=== PATIENT | female | born 1990 | race African-American/Black ===

== ENCOUNTER 2020-08-19 16:24 | Outpatient (CLI) | payer MEDICAID ==
--- NOTE | 2020-08-19 17:29 | Non Stress Test Report ---
Non Stress Test Datetime Report Generated by CPN: 08/19/2020 17:29 DEMOGRAPHIC EGA NST: 38.3 INDICATION Indication for Study (NST) Other: LC- ctxs MONITORING Monitor Explained: Monitor Explained; Test Explained; Patient Verbalized Understanding Time on Monitor: 08/19/2020 16:53 Time off Monitor: 08/19/2020 17:27 NST Duration: 34 NST INTERVENTIONS NST Interventions: PO Hydration Physician Notified NST: Dr Tapia BABY A: [id number] BABY A Movement : Present Contraction Frequency : 5-6 FHR Baseline : 130 Accelerations : 15X15 Decelerations : None Variability : Moderate 6-25bpm NST Review: Meets Criteria for Reactive NST NST Review and Verified By : Kaitlynn Baitejinder RN NST Results: Reactive NST COMMENTS NST Comments: MD on unit reviewing FHT strip NST REPORT Report Trigger: Send Report
[2020-08-19 17:32] LABS: APPEARANCE,URINE CLEAR; BILIRUBIN,URINE NEGATIVE (NEGATIVE); COLOR,URINE YELLOW; GLUCOSE, URINE NEGATIVE (NEGATIVE); KETONES,URINE NEGATIVE (NEGATIVE); LEUKOCYTE ESTERASE,URINE SMALL (NEGATIVE); NITRITE,URINE NEGATIVE (NEGATIVE); PROTEIN,URINE NEGATIVE (NEGATIVE); URINE SPECIFIC GRAVITY 1.011; UROBILINOGEN,URINE NEGATIVE mg/dL (<2.0)
[2020-08-19 17:48] LABS: URINE AMPHETAMINES SCREEN NEGATIVE; URINE BARBITURATES SCREEN NEGATIVE; URINE BENZODIAZEPINES SCREEN NEGATIVE; URINE COCAINE SCREEN NEGATIVE; URINE MARIJUANA (THC) SCREEN NEGATIVE; URINE METHADONE SCREEN NEGATIVE; URINE PHENCYCLIDINE SCREEN NEGATIVE
== END 2020-08-19 20:01 | disposition home or self-care (01) ==
LOC: LC 16:24
PROVIDERS: ATTEND Obstetrics & Gynecology Gynecology
DX: O47.1 False labor at or after 37 completed weeks of gestation (principal); Z3A.38 38 weeks gestation of pregnancy
CPT/HCPCS: 80307; 81005

== ENCOUNTER 2020-08-23 10:43 | Inpatient (IN) | payer MEDICAID ==
[2020-08-23] MEDS ORDERED: OXYTOCIN/0.9 % SODIUM CHLORIDE 30 UNIT/500 ML RTUINJ ONE (10:56)
[2020-08-23] MEDS ORDERED: LIDOCAINE 1% INJ-PF (10 MG/ML) 30 ML SDV ONE (10:56)
[2020-08-23] MEDS ORDERED: OXYTOCIN 10 UNIT/ML VIAL ONE (10:56)
[2020-08-23] MEDS ORDERED: MISOPROSTOL 0.2 MG TABLET ONE (10:56)
[2020-08-23] MEDS ORDERED: OXYTOCIN/0.9 % SODIUM CHLORIDE 30 UNIT/500 ML RTUINJ IV PRN ×2 (10:59→18:26)
[2020-08-23] MEDS ORDERED: RINGERS SOLUTION,LACTATED 1,000 ML IV ONE (10:59)
[2020-08-23] MEDS ORDERED: RINGERS SOLUTION,LACTATED 500 ML IV ONE (10:59)
--- NOTE | 2020-08-23 11:52 | Admission Physical ---
Datetime Report Generated by CPN: 08/23/2020 11:51 CURRENT ADMISSION Chief Complaint: Scheduled Induction of Labor Indication for Induction: Other Indication for Induction- Other: hx rapid labor Admit Impression : Term, Intrauterine Admit Plan: Admit to Unit; Initiate Labor Induction Protocol Admit Plan- Other: GBS neg ALLERGIES Medication Allergies: Yes Medication Allergies: No Known Drug Allergies (08/23/2020) Latex: No Latex Allergies OBSTETRICAL HISTORY EDC: 08/30/2020 00:00 : 3 Para: 2 Term: 2 : 0 SAB: 0 IAB: 0 Ectopic: 0 Livin Cesareans: 0 VBACs: 0 Multiple Births: 0 Gestational Diabetes: No Rh Sensitization: No Incompetent Cervix: No MILIND: No Infertility: No Uterine Anomaly: No IUGR: No Hx Previous C/S: No Macrosomia: No Hx Loss/Stillborn: No PIH: No Hx : No Placenta Previa/Abruption: No PTL/PROM: No Current Procedures: Ultrasound; NST Obstetrical History Comments: G1- 2009 41 weeks 7#12 oz G2- 2014 39.5 weeks 7#6 oz G3- current SEE RECORDS Cigarettes: Never Smoker. [id number] MEDICAL HISTORY Pulmonary Disease (Asthma, TB): Yes Hosp/Surgery: Yes Other Medical Diseases: Yes Medical History Comments: asthma, childbirth x2, PICA as a teen, PHYSICAL EXAM General: Normal HEENT: Deferred Neurologic: Normal Thyroid: Deferred Heart: Normal Lungs: Normal Breast: Deferred Back: Deferred Abdomen: Normal Genitourinary Exam: Normal Extremities: Normal DTRs: Deferred Pelvic Type: Not Done Physical Exam Comments: proven pelvis 7lb 12oz was 4/80/-2 at [facility] on 08/21/20 Vital Signs: Reviewed MEMBRANES Membranes: Intact FETUS A EGA: 39.0 Monitoring: External US FHR- Baseline: 135 Variability: Moderate 6-25bpm Accelerations: 15X15 Decelerations: None FHR Category: Category I Presentation: Vertex Admit Comment: plan AROM, pitocin aniticipate PLANS FOR LABOR AND DELIVERY Circumcision: Yes INFORMED CONSENT Assignment: Beverly Plascencia MD Signature: with User ID: Solis : with User ID: Solis
[2020-08-23 11:56] LABS: ABSOLUTE EOSINOPHILS # (AUTO) 0.1 10^3/uL (0.0-0.6); ABSOLUTE LYMPHOCYTES (AUTO) 1.2 10^3/uL (0.5-4.7); ABSOLUTE MONOCYTES (AUTO) 0.7 10^3/uL (0.1-1.4); ABSOLUTE NEUT (AUTO) 6.8 10^3/uL (1.7-8.2); BASOPHILS % (AUTO) 0.5 % (0-2); EOSINOPHILS % (AUTO) 1.4 % (0-6); HEMATOCRIT 33.7 % (36.0-47.0); HEMOGLOBIN 11.6 g/dL (12.0-15.5); LYMPHOCYTES % (AUTO) 13.4 % (13-45); MEAN CORPUSCULAR HEMOGLOBIN 25.7 pg (27.0-33.4); MEAN CORPUSCULAR HGB CONC 34.5 g/dL (32.0-36.0); MEAN CORPUSCULAR VOLUME 75 fl (80-97); MONOCYTES % (AUTO) 8.4 % (3-13); PLATELET COUNT 153 10^3/uL (150-450); RED BLOOD COUNT 4.52 10^6/uL (3.72-5.28); RED CELL DISTRIBUTION WIDTH 15.9 % (11.5-14.0); SEGMENTED NEUTROPHILS % (AUTO) 76.3 % (42-78); TOTAL CELLS COUNTED % (AUTO) 100 %; WHITE BLOOD COUNT 8.9 10^3/uL (4.0-10.5)
[2020-08-23 11:58] LABS: APPEARANCE,URINE SLIGHTLY HAZY; BILIRUBIN,URINE NEGATIVE (NEGATIVE); COLOR,URINE YELLOW; GLUCOSE, URINE NEGATIVE (NEGATIVE); KETONES,URINE NEGATIVE (NEGATIVE); LEUKOCYTE ESTERASE,URINE NEGATIVE (NEGATIVE); NITRITE,URINE NEGATIVE (NEGATIVE); PROTEIN,URINE NEGATIVE (NEGATIVE); URINE SPECIFIC GRAVITY 1.022; UROBILINOGEN,URINE NEGATIVE mg/dL (<2.0)
[2020-08-23] MEDS ORDERED: RINGERS SOLUTION,LACTATED 1,000 ML IV PRN (12:11)
[2020-08-23 12:20] LABS: URINE AMPHETAMINES SCREEN NEGATIVE; URINE BARBITURATES SCREEN NEGATIVE; URINE BENZODIAZEPINES SCREEN NEGATIVE; URINE COCAINE SCREEN NEGATIVE; URINE MARIJUANA (THC) SCREEN NEGATIVE; URINE METHADONE SCREEN NEGATIVE; URINE PHENCYCLIDINE SCREEN NEGATIVE
[2020-08-23] MEDS ORDERED: NALBUPHINE HCL INJ 10 MG/1 ML AMPULE INJ ONE (18:01)
[2020-08-23] MEDS ORDERED: PROMETHAZINE HCL INJ 25 MG/1 ML VIAL IV ONE (18:02)
[2020-08-23] MEDS ORDERED: NALBUPHINE HCL INJ 10 MG/1 ML AMPULE ONE (18:03)
[2020-08-23] MEDS ORDERED: PROMETHAZINE HCL INJ 25 MG/1 ML VIAL ONE (18:03)
[2020-08-23] MEDS ORDERED: DIPHENHYDRAMINE HCL 25 MG CAPSULE PO PRN (18:26)
[2020-08-23] MEDS ORDERED: DIBUCAINE 1% OINTMENT 28 GM TP PRN (18:26)
[2020-08-23] MEDS ORDERED: PSEUDOEPHEDRINE HCL 30 MG TABLET PO PRN (18:26)
[2020-08-23] MEDS ORDERED: DIPH/PERTUSS(ACELL)/TETANUS VAC/PF 0.5 ML SYR (>=10YO) IM PRN (18:26)
[2020-08-23] MEDS ORDERED: ACETAMINOPHEN WITH CODEINE #3 TABLET PO PRN ×2 (18:26)
[2020-08-23] MEDS ORDERED: ACETAMINOPHEN 325 MG TABLET PO PRN (18:26)
[2020-08-23] MEDS ORDERED: MAGNESIUM HYDROXIDE SUSP 30 ML UDCUP PO PRN (18:26)
[2020-08-23] MEDS ORDERED: GLYCERIN/WITCH HAZEL LEAF 1 EACH MED..WIPE TP PRN (18:26)
[2020-08-23] MEDS ORDERED: BENZOCAINE/MENTHOL AEROSOL SPRAY 56 ML TOP PRN (18:26)
[2020-08-23] MEDS ORDERED: MAG HYDROX/AL HYDROX/SIMETH SUSP 30 ML UDCUP PO PRN (18:26)
[2020-08-23] MEDS ORDERED: FAMOTIDINE 20 MG TABLET PO PRN (18:26)
[2020-08-23] MEDS ORDERED: VARICELLA VACC/PF (1350 UNIT/0.5 ML) 0.5 ML VIAL SUBCUT PRN (18:26)
[2020-08-23] MEDS ORDERED: MEASLES,MUMPS&RUBELLA VACC/PF 0.5 ML VIAL SUBCUT PRN (18:26)
[2020-08-23] MEDS ORDERED: ZOLPIDEM TARTRATE 5 MG TABLET PO PRN (18:26)
[2020-08-23] MEDS ORDERED: ACETAMINOPHEN 650 MG SUPP.RECT PR PRN (18:26)
--- NOTE | 2020-08-23 19:21 | Warning Signs in Babies ---
VOD Warning Signs Datetime Report Generated by N: 08/23/2020 19:21 VOD#608 -Warning Signs in Babies: Viewed with Parent(s)/Family (08/19/2020 16:26:Alix Lu RN)
[2020-08-23] MEDS ORDERED: IBUPROFEN 800 MG TABLET ONE (19:45)
[2020-08-23] MEDS: IBUPROFEN 800 MG TABLET PO SCH (21:50)
[2020-08-24] MEDS: IBUPROFEN 800 MG TABLET PO SCH ×3 (05:53→21:05)
[2020-08-24 08:50] LABS: HEMATOCRIT 28.7 % (36.0-47.0); MEAN CORPUSCULAR HEMOGLOBIN 26.2 pg (27.0-33.4); MEAN CORPUSCULAR VOLUME 75 fl (80-97); PLATELET COUNT 147 10^3/uL (150-450); RED BLOOD COUNT 3.83 10^6/uL (3.72-5.28); RED CELL DISTRIBUTION WIDTH 15.9 % (11.5-14.0); WHITE BLOOD COUNT 10.7 10^3/uL (4.0-10.5)
--- NOTE | 2020-08-24 10:18 | PDOC PROGRESS REPORT ---
Subjective-OB Progress Note for:: 08/24/20 Subjective: Pt doing well, no concerns. She reports light bleeding, reg diet and voiding w/o difficulty. Physical Exam (OB) Vital Signs: Temp Pulse Resp BP Pulse Ox 98.2 F 80 16 113/50 L 100 08/24/20 08:06 08/24/20 08:06 08/24/20 08:06 08/24/20 08:06 08/24/20 08:06 Intake & Output 08/23/20 08/24/20 08/25/20 06:59 06:59 06:59 Intake Total 380 Balance 380 Weight 100.7 kg - Maternal Morbidity 59. Maternal Morbidity (serious complications experinced by the mother associated with labor and delivery: None of the above - Lochia Lochia Amount: Small 10-25 ml Lochia Color: Rubra/Red - Abdomen Description: Soft, Round Hernia Present: Yes Fundal Description: Firm, Midline Fundal Height: u/u - u/2 Objective-Diagnostic Laboratory: 08/24/20 08:21 08/23/20 08/23/20 08/23/20 10:51 11:38 11:38 WBC 8.9 RBC 4.52 Hgb 11.6 L Hct 33.7 L MCV 75 L MCH 25.7 L MCHC 34.5 RDW 15.9 H Plt Count 153 Seg Neutrophils % 76.3 Urine Color YELLOW Urine Appearance SLIGHTLY HAZY Urine pH 6.0 Ur Specific [place] 1.022 Urine Protein NEGATIVE Urine Glucose (UA) NEGATIVE Urine Ketones NEGATIVE Urine Blood SMALL H Urine Nitrite NEGATIVE Ur Leukocyte Esterase NEGATIVE Blood Type O NEGATIVE Antibody Screen NEGATIVE 08/24/20 08/24/20 08:21 08:21 WBC 10.7 H RBC 3.83 Hgb 10.0 L Hct 28.7 L MCV 75 L MCH 26.2 L MCHC 35.0 RDW 15.9 H Plt Count 147 L Seg Neutrophils % Urine Color Urine Appearance Urine pH Ur Specific [place] Urine Protein Urine Glucose (UA) Urine Ketones Urine Blood Urine Nitrite Ur Leukocyte Esterase Blood Type O NEGATIVE Antibody Screen Assessment and Plan(PN) - Assessment and Plan (1) Obesity affecting Qualifiers: Trimester: unspecified trimester Qualified Code(s): O99.210 - Obesity complicating , unspecified trimester Is this a current diagnosis for this admission?: Yes (2) Vaginal delivery Is this a current diagnosis for this admission?: Yes - Time Spent with Patient Time with patient: Less than 15 minutes Medications reviewed and adjusted accordingly: Yes - Disposition Anticipated Discharge Disposition: Home, Self Care Anticipated Discharge Timeframe: within 24 hours
[2020-08-24] MEDS: DOCUSATE SODIUM 100 MG CAPSULE PO SCH ×2 (10:22→17:40)
[2020-08-24] MEDS: FERROUS SULFATE 325 MG TABLET PO SCH ×2 (10:22→17:40)
[2020-08-24] MEDS: SENNOSIDES/DOCUSATE 8.6-50 MG 1 EACH TABLET PO SCH (10:22)
[2020-08-24] MEDS: PRENATAL VITAMIN W DHA CAPSULE PO SCH (10:22)
[2020-08-25] MEDS: IBUPROFEN 800 MG TABLET PO SCH ×2 (05:04→15:12)
[2020-08-25 07:42] VITALS: BP 115/72
--- NOTE | 2020-08-25 10:35 | PDOC DISCHARGE SUMMARY ---
Impression - Admit/DC Date/PCP Admission Date/Primary Care Provider: 08/23/20 10:43 SANTANA SYKES MD Discharge Date: 08/25/20 - Assessment Summary: She presented for induction of labor and delivered vaginally. She did well post . She would like to go home today. - Additional Information Resuscitation Status: Full Code Discharge Diet: As Tolerated Discharge Activity: Pelvic Rest Referrals: SANTANA SYKES MD [Primary Care Provider] - Prescriptions: Docusate Sodium [Colace 100 mg Capsule] 100 mg PO BID #30 capsule Ibuprofen [Motrin 800 mg Tablet] 800 mg PO Q8 #30 tablet Sennosides/Docusate 8.6-50 mg [Senna Plus Tablet] 1 each PO DAILY #30 tablet Home Medications: [id number]/Iron/Folic Acid/Dha [Prena1 Karol Softgel] 1 cap PO DAILY 07/24/15 Docusate Sodium [Colace 100 mg Capsule] 100 mg PO BID #30 capsule 08/25/20 Ibuprofen [Motrin 800 mg Tablet] 800 mg PO Q8 #30 tablet 08/25/20 Sennosides/Docusate 8.6-50 mg [Senna Plus Tablet] 1 each PO DAILY #30 tablet 08/25/20 History of Present Illiness History of Present Illness: ALEXIS JAVIER is a 30 year old female Physical Exam - Physical Exam Vital Signs: Temp Pulse Resp BP Pulse Ox 97.8 F 84 18 115/72 100 08/25/20 07:36 08/25/20 07:36 08/25/20 07:36 08/25/20 07:36 08/25/20 07:36 Intake & Output 08/24/20 08/25/20 08/26/20 06:59 06:59 06:59 Intake Total 1020 Balance 1020 Weight 100.7 kg Results Laboratory Results: WBC 10.7 10^3/uL (4.0-10.5) H 08/24/20 08:21 RBC 3.83 10^6/uL (3.72-5.28) 08/24/20 08:21 Hgb 10.0 g/dL (12.0-15.5) L 08/24/20 08:21 Hct 28.7 % (36.0-47.0) L 08/24/20 08:21 MCV 75 fl (80-97) L 08/24/20 08:21 MCH 26.2 pg (27.0-33.4) L 08/24/20 08:21 MCHC 35.0 g/dL (32.0-36.0) 08/24/20 08:21 RDW 15.9 % (11.5-14.0) H 08/24/20 08:21 Plt Count 147 10^3/uL (150-450) L 08/24/20 08:21 Lymph % (Auto) 13.4 % (13-45) 08/23/20 11:38 [place] % (Auto) 8.4 % (3-13) 08/23/20 11:38 Eos % (Auto) 1.4 % (0-6) 08/23/20 11:38 Baso % (Auto) 0.5 % (0-2) 08/23/20 11:38 Absolute Neuts (auto) 6.8 10^3/uL (1.7-8.2) 08/23/20 11:38 Absolute Lymphs (auto) 1.2 10^3/uL (0.5-4.7) 08/23/20 11:38 Absolute Monos (auto) 0.7 10^3/uL (0.1-1.4) 08/23/20 11:38 Absolute Eos (auto) 0.1 10^3/uL (0.0-0.6) 08/23/20 11:38 Absolute Basos (auto) 0.0 10^3/uL (0.0-0.2) 08/23/20 11:38 Seg Neutrophils % 76.3 % (42-78) 08/23/20 11:38 Urine Color YELLOW 08/23/20 10:51 Urine Appearance SLIGHTLY HAZY 08/23/20 10:51 Urine pH 6.0 (5.0-9.0) 08/23/20 10:51 Ur Specific [place] 1.022 08/23/20 10:51 Urine Protein NEGATIVE mg/dL (NEGATIVE) 08/23/20 10:51 Urine Glucose (UA) NEGATIVE mg/dL (NEGATIVE) 08/23/20 10:51 Urine Ketones NEGATIVE mg/dL (NEGATIVE) 08/23/20 10:51 Urine Blood SMALL (NEGATIVE) H 08/23/20 10:51 Urine Nitrite NEGATIVE (NEGATIVE) 08/23/20 10:51 Urine Bilirubin NEGATIVE (NEGATIVE) 08/23/20 10:51 Urine Urobilinogen NEGATIVE mg/dL (<2.0) 08/23/20 10:51 Ur Leukocyte Esterase NEGATIVE (NEGATIVE) 08/23/20 10:51 Urine Ascorbic Acid NEGATIVE (NEGATIVE) 08/23/20 10:51 Urine Opiates Screen NEGATIVE 08/23/20 10:51 Urine Methadone Screen NEGATIVE 08/23/20 10:51 Ur Barbiturates Screen NEGATIVE 08/23/20 10:51 Ur Phencyclidine Scrn NEGATIVE 08/23/20 10:51 Ur Amphetamines Screen NEGATIVE 08/23/20 10:51 U Benzodiazepines Scrn NEGATIVE 08/23/20 10:51 Urine Cocaine Screen NEGATIVE 08/23/20 10:51 U Marijuana (THC) Screen NEGATIVE 08/23/20 10:51 RPR NONREACTIVE (NONREACTIVE) 08/23/20 11:38 Blood Type O NEGATIVE 08/24/20 08:21 Antibody Screen NEGATIVE 08/23/20 11:38 Screen NEGATIVE 08/24/20 08:21 Stroke Is this a Stroke Patient?: No Acute Heart Failure Is this a Heart Failure Patient?: No
[2020-08-25] MEDS: SENNOSIDES/DOCUSATE 8.6-50 MG 1 EACH TABLET PO SCH (11:03)
[2020-08-25] MEDS: PRENATAL VITAMIN W DHA CAPSULE PO SCH (11:03)
[2020-08-25] MEDS: DOCUSATE SODIUM 100 MG CAPSULE PO SCH (11:03)
[2020-08-25] MEDS: FERROUS SULFATE 325 MG TABLET PO SCH (11:03)
--- NOTE | 2020-08-28 13:13 | Delivery Summary ---
Del Sum A-C Datetime Report Generated by CPN: 08/28/2020 13:13 DELIVERY PERSONNEL DELIVERY PERSONNEL: [id number] Delivery Doctor:: Beverly Plascencia MD Labor and Delivery Nurse:: Alix Lu RNattendant campground Nurse:: Betsy Frank RN Nursery Nurse:: Ana Reza RN Nursery Nurse:: Ana Staton RN Tax Economist/TECHNICAL SOLUTIONS DIRECTOR: [facility], IMMIGRATION ASSOCIATE MATERNAL INFORMATION Delivery Anesthesia: None Delivery Anesthesia: None Medications After Delivery: Pitocin 30 Units in 500ml NS/D5W Estimated Blood Loss (ml): 250 Delivery QBL: 250 Maternal Complications: None LABOR SUMMARY EDC: 08/30/2020 00:00 No. Babies in Womb: 1 Attempted: No Labor Anesthesia: None LABOR INFORMATION Reason for Induction: Other Reason for Induction- Other: h/o rapid labor Reason for Induction- Other: Rapid deliveries Onset of Labor: 08/23/2020 17:49 Complete Dilatation: 08/23/2020 18:08 Oxytocin: Induction Group B Beta Strep: negative Antibiotics # of Doses: 0 Name of Antibiotic Given: N/A Steroids Given: None Steroids Given: None Reason Steroids Not Administered: Not Applicable Reason Steroids Not Administered: Not Applicable MEMBRANES Membranes Rupture Method: Artificial Rupture of Membranes: 08/23/2020 17:49 Length of Rupture (hr): 0.38 Amniotic Fluid Color: Clear Amniotic Fluid Amount: Moderate Amniotic Fluid Odor: Normal STAGES OF LABOR Stage 1 hr: 0 Stage 1 min: 19 Stage 2 hr: 0 Stage 2 min: 4 Stage 3 hr: 0 Stage 3 min: 6 Total Time in Labor hr: 0 Total Time in Labor min: 29 VAGINAL DELIVERY Episiotomy: None Laceration #1: None Laceration Extension #1: N/A Laceration Extension #1: N/A Laceration Repair: Not Applicable Laceration Repair: Not Applicable Sponge Count Correct: N/A Sponge Count Correct: Vaginal Sweep Performed Sharps Count Correct: Yes Sharps Count Correct: N/A CSECTION DELIVERY Primary Indication: N/A Secondary Indication: N/A CSection Incidence: N/A Labor: N/A Elective: N/A CSection Incision: N/A BABY A INFORMATION Infant Delivery Date/Time: 08/23/2020 18:12 Method of Delivery: Vaginal Method of Delivery: Vaginal Nurse Controlled Delivery: No Born in Route : No : N/A Forceps: N/A Vacuum Extraction: N/A Shoulder Dystocia : No Shoulder Dystocia : No PRESENTATION/POSITION BABY A Presentation: Cephalic Presentation: Cephalic Presentation: Cephalic Presentation: Cephalic Cephalic Presentation: Vertex Vertex Position: Right Occipital Anterior Breech Presentation: N/A PLACENTA INFORMATION BABY A Placenta Delivery Time : 08/23/2020 18:18 Placenta Delivery Time : 08/23/2020 18:18 Placenta Method of Delivery: Spontaneous Placenta Status: Delivered SCORES BABY A Heart Rate 1 min: >100 bpm Resp Effort 1 min: Good Cry Reflex Irritability 1 min: Cough or Sneeze or Pulls Away Muscle Tone 1 min: Active Motion Color 1 min: Body [place], Extremities Blue Resuscitation Effort 1 min: N/A SCORE 1 MIN: 9 Heart Rate 5 min: >100 bpm Resp Effort 5 min: Good Cry Reflex Irritability 5 min: Cough or Sneeze or Pulls Away Muscle Tone 5 min: Active Motion Color 5 min: Body [place], Extremities Blue Resuscitation Effort 5 min: N/A SCORE 5 MIN: 9 INFANT INFORMATION BABY A Gestational Age at Delivery: 39.0 Gestational Status: Full Term- 39- 40.6 Weeks Infant Outcome : Liveborn Condition : Stable Sex: Male Infant Sex: Male IDENTIFICATION BABY A Verification Date/Time: 08/23/2020 19:15 ID Band Number: [id number] Mother's Name Verified: Yes RN Verifying Infant: Alma Lu, RN Additional Verifying Personnel: TAnder Tyler, RN WEIGHT/LENGTH BABY A Birthweight (gm): 3660 Weight (lb): 8 Infant Weight (oz): 1 Infant Length (in): 19.50 Infant Length (cm): 49.53 CORD INFORMATION BABY A No. Cord Vessels: 3 Nuchal Cord : N/A Cord Blood Taken: Yes-For Eval (Mom's Blood Type - or O+) Infant Suction: None ASSESSMENT BABY A Complications: None Physical Findings at Delivery: Within Normal Limits Respirations: Appears Normal Skin to Skin: Yes Skin to Skin Time (min): 30 Transferred To: Remains with Mother BABY B INFORMATION : N/A SIGNATURES : I was personally available for consultation and serving as supervising physician for the MLP.
== END 2020-08-25 15:37 | disposition home or self-care (01) | DRG 807 ==
LOC: LR 10:43 → 2S 21:50
PROVIDERS: ADMIT Obstetrics & Gynecology; ATTEND Obstetrics & Gynecology
PROC: 10E0XZZ Delivery of Products of Conception, External Approach (ICD-10-PCS; principal; 2020-08-23)
PROC: 3E033VJ Introduction of Other Hormone into Peripheral Vein, Percutaneous Approach (ICD-10-PCS; 2020-08-23)
PROC: 10907ZC Drainage of Amniotic Fluid, Therapeutic from Products of Conception, Via Natural or Artificial Opening (ICD-10-PCS; 2020-08-23)
PROC: 3E0334Z Introduction of Serum, Toxoid and Vaccine into Peripheral Vein, Percutaneous Approach (ICD-10-PCS; 2020-08-25)
DX: O75.89 Other specified complications of labor and delivery (principal); Z37.0 Single live birth; O99.214 Obesity complicating childbirth; Z3A.39 39 weeks gestation of pregnancy
CPT/HCPCS: 36415; 80307; 81005; 85025; 85027; 85461; 86592; 86850; 86900; 86901; J2300; J2550; J2590; J2790; J3490